=== PATIENT | male | born 1980 | race Caucasian/White ===

== ENCOUNTER 2017-08-01 09:12 | Emergency (ER) | payer BC ==
[~2017-08-01] VITALS: Ht 182.9 cm; Wt 149.3 kg
[2017-08-01 09:18] VITALS: BP 155/101
[2017-08-01] MEDS ORDERED: MORPHINE SULFATE 2 MG/ML SYR IM ONE (09:25)
[2017-08-01] MEDS ORDERED: ACETAMINOPHEN EXTRA STRENGTH 500 MG TAB PO ONE ×2 (09:25→09:30)
[2017-08-01] MEDS ORDERED: NACL 0.9% 2,000 ML IV SCH (09:25)
[2017-08-01] MEDS ORDERED: ONDANSETRON 4 MG/2 ML VIAL IVP ONE (09:25)
[2017-08-01] MEDS ORDERED: VANCOMYCIN 1,000 MG in DEXTROSE 5% 250 ML IV ONE (09:25)
[2017-08-01] MEDS ORDERED: PIPERACILLIN/TAZOBACTAM 3.375 GM in DEXTROSE 5% 50 ML IV ONE (09:25)
--- NOTE | 2017-08-01 09:38 | NUR ---
PATIENT TO BED 12 AT THIS TIME.
--- NOTE | 2017-08-01 09:50 | NUR ---
36m bib self with c/o right lower leg pain x 3 days with fevers. Redness and swelling noted to right lower leg. CMS and skin intact. Pt reports of 10/10 constant "sharp" pain to right lower leg x 3 days. Pt is aox4 with steady gait. RR are even and unlabored. No acute distress at this time. Pt is sinus tachy on cm. Er md aware of pt status. All needs met at this time. Will continue to monitor.
--- NOTE | 2017-08-01 09:53 | NUR ---
us by bedside.
[2017-08-01 10:06] LABS: BASOPHILS # (AUTO) 0.5 K/uL (0.00-0.22); BASOPHILS % (AUTO) 3.6 % (0.0-2.0); EOSINOPHILS % (AUTO) 0.2 % (0.0-4.0); HEMOGLOBIN 17.5 g/dL (12.0-18.0); LYMPHOCYTES # (AUTO) 1.1 K/uL (2.0-11.5); LYMPHOCYTES % (AUTO) 8.7 % (20.5-51.1); MEAN CORPUSCULAR HEMOGLOBIN 30 pg (27-31); MEAN CORPUSCULAR HGB CONC 34 g/dL (33-37); MEAN CORPUSCULAR VOLUME 87 fL (80-94); MONOCYTES # (AUTO) 0.5 K/uL (0.8-1.0); NEUTROPHILS # (AUTO) 11.1 K/uL (1.8-7.7); NEUTROPHILS % (AUTO) 83.5 % (42.2-75.2); PLATELET COUNT (AUTO) 214 K/uL (140-450); RED BLOOD CELL COUNT(AUTO) 5.86 MIL/uL (4.20-6.10); RED CELL DISTRIBUTION WIDTH 12.2 % (11.6-13.7); WHITE BLOOD COUNT (AUTO) 13.2 K/uL (4.8-10.8)
[2017-08-01 10:07] LABS: ANION GAP 17.1 (8-16); CARBON DIOXIDE 23.7 mmol/L (21-32); CREATININE 1.2 mg/dL (0.7-1.3); POTASSIUM 3.8 mmol/L (3.5-5.1)
[2017-08-01] MEDS ORDERED: PIPERACILLIN/TAZOBACTAM 3.375 GM VIAL IV ONE (10:10)
[2017-08-01 10:13] LABS: ALBUMIN 3.7 g/dL (3.4-5.0); TOTAL BILIRUBIN 1.1 mg/dL (0.0-1.0)
[2017-08-01] MEDS ORDERED: VANCOMYCIN 1,000 MG VIAL ONE (10:59)
[2017-08-01] MEDS ORDERED: diphenhydrAMINE 50 MG/ML VIAL ONE (11:27)
--- NOTE | 2017-08-01 11:38 | NUR ---
Note donald in EDM - 08/01/17 at 1146 by RANCHO pt with no complaints; pt on cellphone talking and calm. pt is aox4. rr are even and unlabored.nad; will continue to monitor.
--- NOTE | 2017-08-01 11:38 | NUR ---
pt c/o pruritus rash to face and upper back. no swelling noted to lips, face, or tongue. no acute resp distress. er md notified and gave new orders. will continue to monitor.
[2017-08-01] MEDS ORDERED: diphenhydrAMINE 50 MG/ML VIAL IVP ONE (11:45)
--- NOTE | 2017-08-01 12:10 | NUR ---
no rash noted to face or upper back or throughout body. pt denies any itchness. will continue to monitor.
[2017-08-01 14:04] VITALS: BP 135/76
--- NOTE | 2017-08-01 14:04 | NUR ---
Patient discharged with v/s stable. Written and verbal after care instructions given and explained. Patient alert, oriented and verbalized understanding of instructions. Ambulatory with steady gait. All questions addressed prior to discharge. ID band removed. Patient advised to follow up with PMD. Rx of kelfex, clindamycin, ibuprofen, and mupirocin given. Patient educated on indication of medication including possible reaction and side effects. Opportunity to ask questions provided and answered.
== END 2017-08-01 15:05 | disposition home or self-care (01) ==
LOC: MED 09:12
DX: L03.115 Cellulitis of right lower limb (principal)
CPT/HCPCS: 36415; 80053; 82948; 83605; 85025; 87040; 93971; 96365; 96366; 96367; 96375; 99285; J1200; J2270; J2405; J2543; J3370; J7060; Q0092

== ENCOUNTER 2018-05-22 13:26 | Emergency (ER) | payer BC ==
[~2018-05-22] VITALS: Ht 180.3 cm; Wt 149.2 kg
[2018-05-22 13:45] VITALS: BP 151/93
[2018-05-22] MEDS ORDERED: ACETAMINOPHEN EXTRA STRENGTH 500 MG TAB PO ONE (13:55)
[2018-05-22] MEDS ORDERED: ACETAMINOPHEN EXTRA STRENGTH 500 MG TAB ONE (14:00)
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
[2018-05-22] MEDS ORDERED: KETOROLAC 60 MG/2 ML VIAL IM ONE (14:25)
[2018-05-22] MEDS ORDERED: SULFAMETH/TRIMETH DS 800/160MG 1 TAB PO ONE (14:25)
--- NOTE | 2018-05-22 14:25 | NUR ---
US AT BEDSIDE
[2018-05-22 14:53] VITALS: BP 140/88
--- NOTE | 2018-05-22 14:53 | NUR ---
Patient discharged with v/s stable. Written and verbal after care instructions given and explained. Patient alert, oriented and verbalized understanding of instructions. Ambulatory with steady gait. All questions addressed prior to discharge. ID band removed. Patient advised to follow up with PMD. Rx of TRAMADOL, BACTRIM, MOTRIN given. Patient educated on indication of medication including possible reaction and side effects. Opportunity to ask questions provided and answered.
== END 2018-05-22 14:53 | disposition home or self-care (01) ==
LOC: MED 13:26
DX: L03.115 Cellulitis of right lower limb (principal); Z88.5 Allergy status to narcotic agent
CPT/HCPCS: 93971; 96372; 99284; J1885; Q0092

== ENCOUNTER 2018-05-25 16:07 | Inpatient (IN) | payer BC ==
[~2018-05-25] VITALS: Ht 190.5 cm; Wt 151.5 kg
[2018-05-25 16:12] VITALS: BP 143/94
[2018-05-25] MEDS ORDERED: VANCOMYCIN 1,000 MG in DEXTROSE 5% 250 ML IV ONE (18:00)
[2018-05-25] MEDS ORDERED: VANCOMYCIN 1,000 MG VIAL ONE (18:20)
[2018-05-25 18:29] LABS: HEMATOCRIT 46.1 % (36-52); HEMOGLOBIN 15.3 g/dL (12.0-18.0); MEAN CORPUSCULAR HEMOGLOBIN 30 pg (27-31); MEAN CORPUSCULAR HGB CONC 33 g/dL (33-37); MEAN CORPUSCULAR VOLUME 89.1 fL (80-94); PLATELET COUNT (AUTO) 262 K/uL (140-450); RED BLOOD CELL COUNT(AUTO) 5.17 MIL/uL (4.20-6.10); RED CELL DISTRIBUTION WIDTH 13.5 % (11.6-13.7); WHITE BLOOD COUNT (AUTO) 12.9 K/uL (4.8-10.8)
[2018-05-25 18:48] LABS: EOSINOPHILS % (MANUAL) 1 % (0-4); LYMPHOCYTES % (MANUAL) 12 % (20-46); MONOCYTES % (MANUAL) 7 % (5-12)
[2018-05-25 18:55] LABS: APPEARANCE,URINE CLEAR (CLEAR); BILIRUBIN,URINE 1+ (NEGATIVE); BLOOD, URINE TRACE-I (NEGATIVE); COLOR,URINE YELLOW (YELLOW); LEUKOCYTE ESTERASE ,URINE NEGATIVE (NEGATIVE); NITRITE, URINE NEGATIVE (NEGATIVE); UGLUCOSE NEGATIVE (NEGATIVE)
[2018-05-25 19:02] LABS: ANION GAP 13.3 (8-16); CARBON DIOXIDE 25.2 mmol/L (21-32); CREATININE 1.1 mg/dL (0.7-1.3); POTASSIUM 3.5 mmol/L (3.5-5.1); TOTAL BILIRUBIN 0.5 mg/dL (0.0-1.0)
[2018-05-26] MEDS ORDERED: VANCOMYCIN PER PHARMACY MC PRN (00:55)
[2018-05-26] MEDS ORDERED: ACETAMINOPHEN 325 MG TAB PO PRN (00:55)
[2018-05-26] MEDS ORDERED: ONDANSETRON 4 MG/2 ML VIAL IVP PRN (00:55)
[2018-05-26 01:20] VITALS: BP 149/93
[2018-05-26] MEDS ORDERED: cefTRIAXone 1,000 MG VIAL ONE (01:53)
[2018-05-26] MEDS: KETOROLAC 30 MG/ML VIAL IVP PRN ×2 (02:00→16:38)
[2018-05-26] MEDS: NACL 0.9% 1,000 ML IV SCH ×3 (02:01→18:44)
[2018-05-26 08:00] VITALS: BP 138/87
[2018-05-26] MEDS ORDERED: VANCOMYCIN 1,250 MG in DEXTROSE 5% 250 ML IV SCH (09:00)
[2018-05-26] MEDS ORDERED: ENOXAPARIN 40 MG/0.4 ML SYR SUBQ SCH (09:00)
[2018-05-26] MEDS ORDERED: ONDA2SOL45 IVP (12:49)
[2018-05-26] MEDS ORDERED: ACET-1182 PO (12:49)
[2018-05-26] MEDS ORDERED: LOV40I SUBQ (12:49)
[2018-05-26] MEDS ORDERED: TOR30I IVP (12:49)
[2018-05-26 16:00] VITALS: BP 141/94
[2018-05-26] MEDS: CLINDAMYCIN 600 MG in DEXTROSE 5% 50 ML IV SCH ×2 (18:46→23:15)
[2018-05-26 23:33] VITALS: BP 146/86
== END 2018-05-26 23:53 | disposition short-term general hospital (02) | DRG 603 ==
LOC: MED 16:07 → MTU 05-26 00:51
PROVIDERS: ADMIT Internal Medicine Pulmonary Disease; ATTEND Internal Medicine Pulmonary Disease
DX: L03.115 Cellulitis of right lower limb (principal); Z68.41 Body mass index [BMI] 40.0-44.9, adult; E66.01 Morbid (severe) obesity due to excess calories; F17.210 Nicotine dependence, cigarettes, uncomplicated; Z88.5 Allergy status to narcotic agent
CPT/HCPCS: 36415; 80053; 81003; 83605; 85025; 87040; 87081; 96365; 96366; 99285; J0696; J1885; J3370; J3490; J7030; J7060